=== PATIENT | female | born 1960 | race Caucasian/White ===

== ENCOUNTER 2023-01-27 06:38 | Outpatient (OUT) | payer BC, SELFPAY ==
[2023-01-27 07:12] LABS: Basophils Percent Auto 0.4 % (0.2-2.0); Eosinophils Absolute Auto 0.1 10^3/uL (0.0-0.7); Estimated Average Glucose 148 mg/dL; Glycohemoglobin A1C 6.8 % (4.5-6.2); Hematocrit 44.6 % (36.0-48.0); Hemoglobin 14.7 g/dL (12.0-16.0); Immature Granulocytes Abs Auto 0.03 10^3/uL (0.00-0.03); Immature Granulocytes Pct Auto 0.4 % (0.0-0.5); Lymphocytes Absolute Auto 2.8 10^3/uL (1.2-3.8); Lymphocytes Percent Auto 33.4 % (20.5-60.0); Mean Corpuscular Hemoglobin 30.2 pg (26.7-34.0); Mean Corpuscular Volume 91.8 fL (81.0-99.0); Mean Platelet Volume 9.4 fL (9.5-13.5); Monocytes Absolute Auto 0.6 10^3/uL (0.3-0.8); Monocytes Percent Auto 7.5 % (1.7-12.0); Neutrophils Absolute Auto 4.8 10^3/uL (1.4-6.5); Neutrophils Percent Auto 57.3 % (43.0-75.0); Platelet Count 377 10^3/uL (150-450); Red Blood Count 4.86 10^6/uL (4.20-5.40); Red Cell Distribution Width 13.1 % (11.0-15.0); White Blood Count 8.4 10^3/uL (4.0-11.0)
[2023-01-27 08:18] LABS: Alanine Aminotransferase 18 U/L (14-59); Albumin Globulin Ratio 0.8; Albumin Level 3.5 g/dL (3.4-5.0); Alkaline Phosphatase 115 U/L (46-116); Anion Gap 12.9; Aspartate Amino Transferase 14 U/L (15-37); BUN Creatinine Ratio 14.5; Bilirubin Direct <0.1 mg/dL (0.0-0.2); Bilirubin Total 0.2 mg/dL (0.2-1.0); Calcium 9.6 mg/dL (8.5-10.1); Carbon Dioxide 28.2 mmol/L (21.0-32.0); Chloride 105 mmol/L (98-107); Cholesterol 133 mg/dL (<=200); Estimated GFR (African America >60 (>=60); Estimated GFR (Non-African Ame >60 (>=60); Free T3 2.62 pg/mL (2.18-3.98); Globulin 4.6 g/dL; Glucose 138 mg/dL (74-106); HDL Cholesterol 65 mg/dL (40-60); Potassium 4.1 mmol/L (3.5-5.1); Sodium 142 mmol/L (136-145); Thyroid Stimulating Hormone 0.016 uIU/mL (0.358-3.740); Total Protein 8.1 g/dL (6.4-8.2); Triglycerides 58 mg/dL (<=150); VLDL CHOLESTEROL 11.6 mg/dL
[2023-01-27 08:34] LABS: Free T4 1.67 ng/dL (0.76-1.46)
== END 2023-01-27 06:39 | disposition home or self-care (01) ==
LOC: LAB 06:43
PROVIDERS: PCP Family Medicine; Visit Provider Family Medicine
DX: Z00.00 Encounter for general adult medical examination without abnormal findings (principal); E03.9 Hypothyroidism, unspecified
CPT/HCPCS: 36415; 80048; 80061; 80076; 83036; 84439; 84443; 84481; 85025

== ENCOUNTER 2023-08-06 10:41 | Outpatient (OUT) | payer MEDICAID, SELFPAY ==
[2023-08-06 11:16] LABS: Estimated Average Glucose 148 mg/dL; Glycohemoglobin A1C 6.8 % (4.5-6.2)
== END 2023-08-06 10:42 | disposition home or self-care (01) ==
PROVIDERS: PCP Family Medicine; Visit Provider Family Medicine
DX: E11.65 Type 2 diabetes mellitus with hyperglycemia (principal)
CPT/HCPCS: 36415; 83036

== ENCOUNTER 2024-02-02 13:20 | Outpatient (OUT) | payer MEDICARE, MEDICAID, SELFPAY ==
--- OUTSIDE RECORDS SUMMARY | 2024-02-02 13:39 | XMS_ITS | CCD ---
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 DRIVER [facility] Care Team Providers Care Differential Specialist Name Role Phone PHYSICIAN, DEFAULT Unavailable Unavailable PHYSICIAN, DEFAULT Unavailable Unavailable SELF, REFERRED Unavailable Unavailable MD Dakota Shaw Primary Care Provider [phone] ROHAN Cao Attending Provider [phone] VALERIA, DR DAKOTA Dewitt Admitting Unavailable NADEREMartin, DR DAKOTA Dewitt Attending Unavailable WEST, DR JAMAAL Varma Consulting Unavailable NADERER, DR DAKOTA Dewitt Consulting Unavailable NADEREMartin, DR DAKOTA Dewitt Admitting Unavailable NADEREMartin, DR DAKOTA Dewitt Attending Unavailable NADERER, DR DAKOTA Dewitt Primary Care Unavailable NADERER, DR DAKOTA Dewitt Consulting Unavailable NADERER, DAKOTA Attending Unavailable NADERER, DAKOTA Attending Unavailable Allergies Allergy Classification Reported Allergen(s) Allergy Type Date of Onset Reaction(s) Facility (3 sources) Penicillins Drug allergy (disorder) 9 Hives The [facility] (2 sources) Sulfonamides (Antibiotic) Drug allergy (disorder) 9 The [facility] (1 source) METAL; Translations: [METAL] Propensity to adverse reactions (disorder) 1 The [facility] (2 sources) Sulfonamides (Antibiotic) Allergy to substance 8 Blister, Blister, hives [facility] (1 source) Leucine Drug Allergy [facility] (1 source) Penicillin Drug Allergy [facility] Medications Current Medications Medication Drug Class(es) Dates Sig (Normalized) Sig (Original) clindamycin 300 mg oral capsule (1 source) Lincosamide Antibacterial Start: 11-03-2023 take 300 mg by mouth every eight hours Clindamycin Hcl Active 300 MG PO Q8H 30 November 03, 2023 12:00am glipiZIDE 10 mg oral tablet (1 source) Sulfonylurea Start: 11-03-2023 take 10 mg by mouth once daily Glipizide Active 10 MG PO Daily November 03, 2023 12:00am levothyroxine sodium 0.15 mg oral tablet (1 source) l-Thyroxine Start: 11-03-2023 take 150 ug by mouth once daily Levothyroxine Active 150 MCG PO Daily November 03, 2023 12:00am lisinopril 40 mg oral tablet (1 source) Angiotensin Converting Enzyme Inhibitor Start: 11-03-2023 take 40 mg by mouth once daily Lisinopril Active 40 MG PO Daily November 03, 2023 12:00am 24 hr metFORMIN hydrochloride 500 mg extended release oral tablet (1 source) Biguanide Start: 11-03-2023 Metformin Active MG PO November 03, 2023 12:00am pioglitazone 30 mg oral tablet (1 source) Peroxisome Proliferator Receptor alpha Agonist, Peroxisome Proliferator Receptor gamma Agonist, Thiazolidinedione Start: 11-03-2023 take 30 mg by mouth once daily Pioglitazone Active 30 MG PO Daily November 03, 2023 12:00am Problems Problem Classification Problem Date Documented Da te Episodic/Chronic Diabetes mellitus with complications (4 sources) Type 2 diabetes mellitus with hyperglycemia; Translations: [TYPE 2 DM W/HYPERGLYCEMIA] Onset: 11-14-2021 Chronic Substance-related disorders (4 sources) Nicotine dependence, cigarettes, uncomplicated; Translations: [NICOTINE DEPEND CIGARETTES UNCOMP] Onset: 08-28-2021 Chronic Results Test Name Value Interpretation Reference Range Facility GLYCOHEMOGLOBIN A1Con 2021 ADA RECOMMENDATION SEE BELOW Normal [facility] Comment on above: Result Comment: ADA RECOMMENDED LIMIT 4.0 - 6.0 ADA THERAPEUTIC TARGET < 7.0 ACTION SUGGESTED > 7.0 Performed By: #### A 1C #### [facility] [address] [address] [address] Wanda Ortiz Glucose [Mass/Vol] 154 mg/dL Normal [facility] Comment on above: Performed By: #### A 1C #### [facility] [address] [place], [place] [address] Dr. Wanda Ortiz HbA1c (Bld) [Mass fraction] 7.0 % Critically high 4.5-6.2 [facility] Comment on above: Performed By: #### A 1C #### [facility] [address] [place], [place] [address] Dr. Wanda Ortiz Vaginitis Plus (VG+)on 10-23 Atopobium Vaginae Low - 0 Normal . [facility] Comment on above: Performed By: #### V AGINITIS+ #### [facility] , BVAB2 Low - 0 Normal . [facility] Comment on above: Performed By: #### V AGINITIS+ #### [facility] , Miley Albicans, DELL Negative Normal Negative [facility] Comment on above: Result Comment: This test was developed and its performance characteristics determined by [facility]. It has not been cleared or approved by the Food and Drug Administration. Performed By: #### V AGINITIS+ #### [facility] , Miley Glabrata, DELL Negative Normal Negative [facility] Comment on above: Result Comment: This test was developed and its performance characteristics determined by [facility]. It has not been cleared or approved by the Food and Drug Administration. PERFORMED BY: [address] [place] [address] PATHOLOGIST IT PROGRAM ENGAGEMENT DIRECTOR RUSSELL WHITFIELD M.D. Performed By: #### V AGINITIS+ #### [facility] , Chlamydia Trachomotis, DELL Negative Normal Negative [facility] Comment on above: Performed By: #### V AGINITIS+ #### [facility] , Megasphaera Low - 0 Normal . [facility] Comment on above: Result Comment: Calc ulate total score by adding the 3 individual bacterial vaginosis (BV) marker scores together. Total score is interpreted as follows: Total score 0-1: Indicates the absence of BV. Total score 2: Indeterminate for BV. Additional clinical data should be evaluated to establish a diagnosis. Total score 3-6: Indicates the presence of BV. This test was developed and its performance characteristics determined by [facility]. It has not been cleared or approved by the Food and Drug Administration. Performed By: #### V AGINITIS+ #### [facility] , Neisseria Gonorrhoeae, DELL Negative Normal Negative [facility] Comment on above: Result Comment: Perf ormed at: =G - [facility] [place] [place] [id number] Social Services Manager: Clemencia Patel MD, Phone: [phone] Performed By: #### V AGINITIS+ #### [facility] , Tric Vag DELL Negative Normal Negative [facility] Comment on above: Performed By: #### V AGINITIS+ #### [facility] , CT LUNG CANCER SCREENINGon 0 08-28-2021 CT LUNG CANCER SCREENING EXAMINATION: CT LUNG CANCER SCREENING HISTORY: Tobacco dependence caused by cigarettes COMPARISON: No relevant comparison available. TECHNIQUE: Axial, Coronal, and Sagittal images were created without the administration of IV contrast material. Dose reduction techniques were achieved by using automated exposure control and/or adjustment of mA and/or kV according to patient size and/or use of iterative reconstruction technique. FINDINGS: LUNGS: Mild scattered paraseptal emphysema with an apical predominance. No significant bronchiectasis or peribronchial thickening. There is a mild groundglass mosaic appearance of the lung parenchyma with peripheral ill-defined groundglass opacities most significant in the upper lung zones. This is indeterminate, consider a mild inflammatory pneumonitis. No focal lung mass is observed few scattered pulmonary nodules are identified punctate, the largest measures 4 mm in the left lower lobe axial image 105 PLEURA: No mass, effusion, or pneumothorax. VASCULATURE: No abnormality. SOPHY: No mass or pathologic adenopathy. MEDIASTINUM: No mass or pathologic adenopathy. CARDIAC: No enlargement, pericardial thickening, or significant calcification. AORTA: No aneurysm or dissection. CHEST WALL: No mass or axillary adenopathy BONES: No bone lesion or fracture. LIMITED ABDOMEN: No suspicious findings. Limited images of the upper abdomen. OTHER: Negative. IMPRESSION: LUNG SCREENING: Lung-RADS Category 2- Benign Appearance or Behavior. Nodules with a very low likelihood of becoming a clinically active cancer due to size or lack of growth. 2. Continue annual screening with LDCT in 12 months. Electronically authenticated by: JAMAAL GIANG Date: 2021-08-28 11:41 Normal [facility] Vital Signs Date Time Vital Sign Value Performing Clinician Dmitry hannah 11-03-2023 13:040 Body height 170.18 cm [facility] 11-03-2023 13:-0400 Body mass index (BMI) [Ratio] 29 kg/m2 [facility] 11-03-2023 13:040 Body temperature 98.2 [degF] [facility] 11-03-2023 13:040 Body weight 84.08 kg [facility] 11-03-2023 13:0400 Heart rate 56 /min [facility] 11-03-2023 13:040 Respiratory rate 18 /min [facility] 11-03-2023 13:0400 SaO2% (BldA) [Mass fraction] 95 % [facility] Encounters Encounter Date Encounter Type Care Provider Facility Start: 01-11-2024 End: 01-11-2024 ambulatory DAKOTA SHAW Not Available Start: 11-03-2023 End: 11-03-2023 ambulatory [facility] Work Phone: Start: 11-03-2023 End: 11-03-2023 Patient encounter procedure [facility] Work Phone: Start: 07-07-2023 End: 07-07-2023 ambulatory DAKOTA SHAW Not Available Start: 11-14-2021 End: 11-15-[address] DAKOTA SHAW Facility:[facility] Start: 10-23-2021 End: 10-23-2021 Departed Referred MD Dakota Shaw Work Phone: [facility] [place] Start: 08-28-2021 End: 08-29-[address] DAKOTA SHAW Facility:[facility] Start: 10-06-2017 End: 10-07-2017 Ambulatory DEFAULT PHYSICIAN Facility:[facility] Plan of Treatment Date Care Activity Detail Author Atlino hope DN A [Presence] in Vaginal fluid by DELL with probe detection [facility] Work Phone: Bacterial vaginosis associated bacterium 2 DNA [Presence] in Vaginal fluid by DELL with probe detection [facility] Work Phone: Megasphaera sp type 1 DNA [Presence] in Vaginal fluid by DELL with probe detection [facility] Work Phone: [facility] Work Phone: Payers Date Payer Category Payer Unknown [id number] 1961 Medicare [id number] 1960 Unknown [id number] 2.16.84 [id number] 1960 Unknown [id number] 2.16.84 [id number] 1960 Unknown [id number] 2.16.84 [id number] 1960 Unknown [id number] 2.16.84 [id number] Medicare Other1 (STD) [id number] Self-pay [id number] Unknown Social History Date Type Detail Facility Start: 03-07-2018 Tobacco smoking stat [facility] Smoker (finding) [facility] Start: 1960 Sex Assigned At Female F [facility] Evaluation note Note Date & Type Note Facility Evaluation note No assessment information availa ble [facility] Work Phone: Summary Purpose Family History No Family History Records Found Relationship Condition Age at Onset Recorded Date/T brábara brother Malignant neoplasm Unknown Unknown father Unknown Malignant neoplasm Unknown Not Specified Malignant neoplasm Unknown Diabetes mellitus Unknown Advance Directives No Advanced Directives Records Found Advance Directive Response Recorded Date/ Time Advance Directives No March 07, 2018 3:24pm Chief Complaint and Reason for Visit Chief Complaint Poss infected tooth Additional Source Comments INFORMATION SOURCE (unrecogn ized section and content) DATE CREATED AUTHOR 01/08/2018 [facility] DATE CREATED AUTHOR AUTHOR'S ORGANIZ ATION 11/10/2021 [facility] DATE CREATED AUTHOR AUTHOR'S ORGANIZ ATION 11/20/2021 [facility] DATE CREATED AUTHOR AUTHOR'S ORGANIZ ATION 01/12/2024 [facility] dical Specialists EPIC Care Teams (unrecognized sec tion and content) Team Status: Inactive Member Role Status Dates Dakota Shaw MD Primary Care Provider Active ROHAN Gamez Attending Provider Active Team Status: Active Member Role Status Dates Dakota Shaw MD Primary Care Provider Active Team Status: Inactive Member Role Status Dates Dakota Shaw MD Primary Care Provider Active S tart: November 03, 2023 End: November 03, 2023 Mary Winston APRN Attending Provider Active Start: November 03, 2023 End: November 03, 2023 Goals (unrecognized section and content) Goals may be documented in a n alternate sectionGoals may be documented in an alternate section FOR RECORDS PERTAINING TO PATIENTS WHO ARE OR HAVE BEEN ENROLLED IN A CHEMICAL DEPENDENCY/SUBSTANCEABUSE PROGRAM, SOME INFORMATION MAY BE OMITTED. This clinical summary was aggregated from multiple sources. Caution should be exercised in using it in the provision of clinical care. This summary normalizes information from multiple sources, and as a consequence, information in this document may materially change the coding, format and clinical context of patient data. In addition, data may be omitted in some cases. CLINICAL DECISIONS SHOULD BE BASED ON THE PRIMARY CLINICAL RECORDS. [employer] provides no warranty or guarantee of the accuracy or completeness of information in this document.
[2024-02-02 14:12] LABS: Basophils Percent Auto 0.3 % (0.2-2.0); Eosinophils Absolute Auto 0.1 10^3/uL (0.0-0.7); Eosinophils Percent Auto 0.4 % (0.9-7.0); Hematocrit 44.7 % (36.0-48.0); Hemoglobin 14.7 g/dL (12.0-16.0); Immature Granulocytes Abs Auto 0.09 10^3/uL (0.00-0.03); Immature Granulocytes Pct Auto 0.6 % (0.0-0.5); Lymphocytes Absolute Auto 3.7 10^3/uL (1.2-3.8); Lymphocytes Percent Auto 25.5 % (20.5-60.0); Mean Corpuscular HGB Conc 32.9 g/dL (29.9-35.2); Mean Corpuscular Hemoglobin 31.3 pg (26.7-34.0); Mean Corpuscular Volume 95.1 fL (81.0-99.0); Mean Platelet Volume 9.8 fL (9.5-13.5); Monocytes Percent Auto 7.1 % (1.7-12.0); Neutrophils Absolute Auto 9.6 10^3/uL (1.4-6.5); Neutrophils Percent Auto 66.1 % (43.0-75.0); Platelet Count 436 10^3/uL (150-450); Red Cell Distribution Width 13.1 % (11.0-15.0); White Blood Count 14.6 10^3/uL (4.0-11.0)
[2024-02-02 14:37] LABS: Estimated Average Glucose 134 mg/dL; Glycohemoglobin A1C 6.3 % (4.5-6.2)
[2024-02-02 15:40] LABS: Microalbumin Urine Random <1.3 mg/dL (<=30.0)
[2024-02-02 16:03] LABS: Free T4 1.19 ng/dL (0.76-1.46)
[2024-02-02 16:26] LABS: Alanine Aminotransferase 25 U/L (14-59); Albumin Globulin Ratio 0.7; Albumin Level 3.6 g/dL (3.4-5.0); Alkaline Phosphatase 105 U/L (46-116); Aspartate Amino Transferase 15 U/L (15-37); BUN Creatinine Ratio 21.6; Bilirubin Direct 0.1 mg/dL (0.0-0.2); Bilirubin Total 0.4 mg/dL (0.2-1.0); Calcium 9.4 mg/dL (8.5-10.1); Carbon Dioxide 26.1 mmol/L (21.0-32.0); Chloride 102 mmol/L (98-107); Cholesterol 219 mg/dL (<=200); Estimated GFR (African America 48 (>=60); Estimated GFR (Non-African Ame 40 (>=60); Globulin 4.9 g/dL; Glucose 108 mg/dL (74-106); HDL Cholesterol 72 mg/dL (40-60); Potassium 4.1 mmol/L (3.5-5.1); Sodium 139 mmol/L (136-145); Thyroid Stimulating Hormone 0.025 uIU/mL (0.358-3.740); Total Protein 8.5 g/dL (6.4-8.2); Triglycerides 97 mg/dL (<=150); VLDL CHOLESTEROL 19.4 mg/dL
== END 2024-02-02 13:21 | disposition home or self-care (01) ==
LOC: LAB 13:23
PROVIDERS: PCP Family Medicine; Visit Provider Family Medicine
DX: E78.5 Hyperlipidemia, unspecified (principal); E11.65 Type 2 diabetes mellitus with hyperglycemia; I10 Essential (primary) hypertension; Z79.899 Other long term (current) drug therapy; E03.9 Hypothyroidism, unspecified
CPT/HCPCS: 36415; 80048; 80061; 80076; 82043; 83036; 84439; 84443; 84481; 85025

== ENCOUNTER 2024-06-29 10:19 | Outpatient (OUT) | payer MEDICARE, MEDICAID, SELFPAY ==
--- OUTSIDE RECORDS SUMMARY | 2024-06-29 10:39 | XMS_ITS | CCD ---
Author Organization [facility] Inform ion Partnership PACK WORKER SUPERVISOR [facility] Care Team Providers Care Art Editor Name Role Phone PHYSICIAN, DEFAULT Unavailable Unavailable PHYSICIAN, DEFAULT Unavailable Unavailable SELF, REFERRED Unavailable Unavailable MD Dakota Shaw Primary Care Provider [phone] ROHAN Cao Attending Provider VALERIA, DR DAKOTA Dewitt Admitting Unavailable NADEREMartin, [...] Penicillins Drug allergy (disorder) 9 Hives [facility] (2 sources) Sulfonamides (Antibiotic) Drug allergy (disorder) 9 [facility] (1 source) METAL; Translations: [METAL] Propensity to adverse reactions (disorder) 1 [facility] (2 sources) Sulfonamides (Antibiotic) Allergy to substance 8 Blister, Blister, hives [facility] (1 source) Leucine Drug Allergy [facility] (1 source) Penicillin Drug Allergy [facility] Medications Current Medications Medication Drug Class(es) [...] 2021 ADA RECOMMENDATION SEE BELOW Normal [facility] Comment on above: Result Comment: ADA RECOMMENDED LIMIT 4.0 - 6.0 ADA THERAPEUTIC TARGET < 7.0 ACTION SUGGESTED > 7.0 Performed By: #### A 1C #### [facility] [address] [address] [address] Wanda Ortiz Glucose [Mass/Vol] 154 mg/dL Normal [facility] Comment on above: Performed By: #### A 1C #### [facility] [address] [place], [place] [address] Dr. Wanda Ortiz HbA1c (Bld) [Mass fraction] 7.0 % Critically high 4.5-6.2 [facility] Comment on above: Performed By: #### A 1C #### [facility] [address] [place], [place] [address] Dr. Wanda Ortiz Vaginitis Plus (VG+)on 10-23 Atopobium Vaginae Low - 0 Normal . [facility] Comment on above: Performed By: #### V AGINITIS+ #### [facility] , BVAB2 Low - 0 Normal . [facility] Comment on above: Performed By: #### V AGINITIS+ #### [facility] , Miley Albicans, DELL Negative Normal Negative [facility] Comment on above: Result Comment: This test was developed and its performance characteristics determined by [facility]. It has not been cleared or approved by the Food and Drug Administration. Performed By: #### V AGINITIS+ #### [facility] , Miley Glabrata, DELL Negative Normal Negative [facility] Comment on above: Result Comment: This test was developed and its performance characteristics determined by [facility]. It has not been cleared or approved by the Food and Drug Administration. PERFORMED BY: [address] [place] [address] PATHOLOGIST PICKER FEEDER RUSSELL WHITFIELD M.D. Performed By: #### V AGINITIS+ #### [facility] , Chlamydia Trachomotis, DELL Negative Normal Negative [facility] Comment on above: Performed By: #### V AGINITIS+ #### [facility] , Megasphaera Low - 0 Normal . [facility] Comment on above: Result Comment: [...] developed and its performance characteristics determined by [facility]. It has not been cleared or approved by the Food and Drug Administration. Performed By: #### V AGINITIS+ #### [facility] , Neisseria Gonorrhoeae, DELL Negative Normal Negative [facility] Comment on above: Result Comment: Perf ormed at: =G - [facility] [place] [place] [id number] Dye Jig Operator: Clemencia Patel MD, Phone: [phone] Performed By: #### V AGINITIS+ #### [facility] , Tric Vag DELL Negative Normal Negative [facility] Comment on above: Performed By: [...] by: JAMAAL GIANG Date: 2021-08-28 11:41 Normal [facility] Vital Signs Date Time Vital Sign Value Performing Clinician Dmitry hannah 11-03-2023 13:040 Body height 170.18 cm [facility] [place] [facility] 11-03-2023 13:-0400 Body mass index (BMI) [Ratio] 29 kg/m2 [facility] 11-03-2023 13:040 Body temperature 98.2 [degF] [facility] 11-03-2023 13:040 Body weight 84.08 kg [facility] [place] [facility] 11-03-2023 13:0400 Heart rate 56 /min [facility] [place] [facility] 11-03-2023 13:040 Respiratory rate 18 /min [facility] 11-03-2023 13:0400 SaO2% (BldA) [Mass fraction] 95 % [facility] Encounters Encounter Date Encounter Type Care Provider Facility Start: 01-11-2024 End: 01-11-2024 ambulatory DAKOTA SHAW Not Available Start: 11-03-2023 End: 11-03-2023 ambulatory [facility] Work Phone: Start: 11-03-2023 End: 11-03-2023 Patient encounter procedure [facility] Work Phone: Start: 07-07-2023 End: 07-07-2023 ambulatory DAKOTA SHAW Not Available Start: 11-14-2021 End: 11-15-[address] DAKOTA SHAW Facility:[facility] Start: 10-23-2021 End: 10-23-2021 Departed Referred MD Dakota Shaw Work Phone: [facility] [place] Start: 08-28-2021 End: 08-29-[address] DAKOTA SHAW Facility:[facility] Start: 10-06-2017 End: 10-07-2017 Ambulatory DEFAULT PHYSICIAN Facility:[facility] Plan of Treatment Date Care Activity Detail Author Atlino hope DN A [Presence] in Vaginal fluid by DELL with probe detection [facility] Work Phone: Bacterial vaginosis associated bacterium 2 DNA [Presence] in Vaginal fluid by DELL with probe detection [facility] Work Phone: Megasphaera sp type 1 DNA [Presence] in Vaginal fluid by DELL with probe detection [facility] Work Phone: [facility] Work Phone: Payers Date Payer Category Payer Unknown [id number] 1961 Medicare [id number] 1960 Unknown [id number] 2.16.84 [id number] 1960 Unknown [id number] 2.16.84 [id number] 1960 Unknown [id number] 2.16.84 [id number] 1960 Unknown [id number] [id number] [id number] Medicare Other1 (STD) [id number] Self-pay [id number] Unknown Social History Date Type Detail Facility Start: 03-07-2018 Tobacco smoking stat [facility] Smoker (finding) [facility] Start: 1960 Sex Assigned At Female F [facility] Evaluation note Note Date & Type Note Facility Evaluation note No assessment information availa ble [facility] Work Phone: Summary Purpose Family History No Family History Records Found Relationship Condition Age at Onset Recorded Date/T bárbara brother Malignant neoplasm Unknown Unknown father Unknown Malignant neoplasm Unknown Not Specified Malignant neoplasm Unknown Diabetes mellitus Unknown Advance Directives No Advanced Directives Records Found Advance Directive Response Recorded Date/ Time Advance Directives No March 07, 2018 3:24pm Chief Complaint and Reason for Visit Chief Complaint Poss infected tooth Additional Source Comments INFORMATION SOURCE (unrecogn ized section and content) DATE CREATED AUTHOR 01/08/2018 [facility] DATE CREATED AUTHOR AUTHOR'S ORGANIZ ATION 11/10/2021 [facility] [place] [facility] DATE CREATED AUTHOR AUTHOR'S ORGANIZ ATION 11/20/2021 [facility] DATE CREATED AUTHOR AUTHOR'S ORGANIZ ATION 01/12/2024 [facility] dical Specialists EPIC Care Teams (unrecognized [...] BE BASED ON THE PRIMARY CLINICAL RECORDS. [employer] provides no warranty or guarantee of the accuracy or completeness of information in this document.
[2024-06-29 15:55] LABS: Estimated Average Glucose 148 mg/dL; Glycohemoglobin A1C 6.8 % (4.5-6.2)
== END 2024-06-29 10:20 | disposition home or self-care (01) ==
LOC: LAB 10:20
PROVIDERS: PCP Family Medicine; Visit Provider Family Medicine
DX: E11.65 Type 2 diabetes mellitus with hyperglycemia (principal)
CPT/HCPCS: 36415; 83036

== ENCOUNTER 2025-02-09 09:12 | Outpatient (OUT) | payer MEDICARE, MEDICAID, SELFPAY ==
--- OUTSIDE RECORDS SUMMARY | 2024-10-14 09:15 | XMS_ITS ---
Author Organization [facility] Servic es Address [address] [place] [address] Care Team Providers Care Fire Sprinkler Inspector Name Role Phone Virgen Jazmine Primary Care Provider Encounters Encounter Location Date Provider Diagnosis [facility] [address] [place] [address] 10/14/2024 Jazmine New Plan Of Treatment Next Appt Details Provider Name:Jazmine bustillos, 03/09/2025 12:30:00 PM, [address], [place], [address], Provider Name:Jazmine bustillos, 04/03/2025 01:15:00 PM, [address] [place], [address], Progress Notes * MAURILIO CARTER KDOB:[birth year] (64 yo F)Acc No.[id number]:10/14/2024 Behavioral Health Patient: Iza SCHMITT MAURILIO Coburn Appointment Provider: HUNTER CHAVEZBC :1960 A ge:63 Y S ex:Female Date:10/14/2024 Address:[address], [address], [place], [place] Subjective: * Chief Complaints: * * Medical History: Objective: * Vitals: Assessment: Plan: * Treatment: * Images: * Electronic signature of DENNY Christianson i on 02/09/2025 at 09:19 AM EDT Sign off status: Pending * Appointment Provider: HUNTER CHAVEZ Date: 0 10/14/2024 Generated for Georgina ariza/Kathy/Shayy on: 0 02/09/2025 09:19 AM EDT
--- OUTSIDE RECORDS SUMMARY | 2025-02-06 09:30 | XMS_ITS ---
Author Organization [facility] Address [address] [place] [address] Care Team Providers [employer] Executive Security Name Role Phone Jazmine Moran Primary Care Provider Allergies Allergen (clinical drug ingredient) Drug/Non Drug Allergy documented on EMR Reaction Allergy Type Onset Date Status Metals Metals (uncoded) Unknown Allergy Act gianna Penicillin hives Drug Allergy Active Substance with sulfonamide structure and antibacterial mechanism of action (substance) Sulfa Antibiotics Unknown Drug Allergy Active REASON FOR VISIT 2 month, Pt states things are going, Pt states she has no concerns, Pt states she is sleeping and eating well, Pt states mood has been lia shitty Medications Medication SIG (Take, Route, Frequency, Duration) Notes Start Date End Date Status Citalopram Hydrobromide 40 MG 1 tablet Orally Once a day; Duration: 90 days Active OLANZapine 5 MG 1 tablet Orally Once a day; Duration: 30 day(s) 12/17/2023 Not-Taking busPIRone HCl 15 MG 2 tablets Orally Onc e a day; Duration: 90 days 03/18/2024 02/01/2026 Active QUEtiapine Fumarate 150 MG 1 or 2 tablets Orally Once a day; Duration: 90 days 06/23/2024 Active Levothyroxine Sodium 150 MCG 1 tablet in the morning on an empty stomach Orally Once a day Active Lisinopril 40 MG 1 tablet Orally Once a day Active metFORMIN HCl 500 MG 2 tablet with a ayden l Orally Twice a day Active Aspirin Active glipiZIDE 10 MG 1 tablet 30 minutes before breakfast Orally Once a day Active Pioglitazone HCl 30 MG 1 tablet Orally O nce a day Active Social History Tobacco Use: Social History Observation Description Date Details (start date - stop date) Current Smoker NA - NA Depression Screening (PHQ-9): Question Answer Notes Little interest or pleasure in doing things Near ly every day Feeling down, depressed, or hopeless Nearly ever y day Trouble falling or staying a sleep, or sleeping too much Nearly every day Feeling tired or having little energy Nearly nacho ry day Poor appetite or overeating Not at all Feeling bad about yourself-o r that you are a failure or have let yourself or your family down Nearly every day Trouble concentrating on thi ngs, such as reading the newspaper or watching television Several days Moving or speaking so slowly that other people could have noticed. Or the opposite being so fidgety or restless that you have been moving around a lot more than usual Nearly every day Thoughts that you would be b siva off , or of hurting yourself in some way Not at all Total Score 19 Intepretation Moderately severe depression AUDIT-C (Standard) Question Answer Notes Did you have a drink containing alcohol in the p ast year? No Points 0 Interpretation Negative Tobacco Control (Standard) Question Answer Notes Tobacco use: Current smoker How often do you smoke cigarettes? Every day How many cigarettes a day do you smoke? 21-30 How soon after you wake up do you smoke your fir st cigarette? Within 5 minutes Are you interested in quitting? Not ready to kaitlyn t Section Notes: Smokes 3PPD Vital Signs Height 67 in 02/06/2025 Weight 191.6 lbs 02/06/2025 BMI 30.01 kg/m2 02/06/2025 Temperature 97.5 degrees Fahrenheit 02/07/20 25 Blood pressure systolic 121 mm Hg 02/07/20 25 Blood pressure diastolic 72 mm Hg 025 Oximetry 94 % 02/06/2025 Heart Rate 60 /min 02/06/2025 Encounters Encounter Location Date Provider [address] [place] [address] 02/06/2025 Jazmine Moran NIDA (generalized anxiety disorder) F41.1 ; Insomnia due to other mental disorder F51.05 and Episodic mood disorder F39 Assessments Encounter Date Diagnosis (ICD Code) Assessment Notes Treatment Notes Treatment Clinical Notes Section Notes 02/06/2025 NIDA (generalized anxiety disorder) (ICD-10 - F41.1) Recommended treatment is: _ FDA approved medication for this age group include Selective Serotonin Reuptake Inhibitors (SSRI) and Selective Norepinephrine Reuptake Inhibitors (SNRI). . Selective serotonin reuptake inhibitors? can cause nausea, headache, upset stomach, diarrhea, constipation, anxiety, irritability, and sexual dysfunction. . Please monitor for worsening of symptoms, especially suicidal ideations or morbid thoughts, and call office and or go to the emergency department immediately. Pt does not endorse exhibiting symptoms aligning with janice. . The patient verbalizes understanding with all questions answered thoroughly and is in agreement with treatment plan. . Continue current treatment plan Patient/Guardian will call sooner if symptoms worsen. Patient understands to go to ER if needed if symptoms become severe. Crisis Intervention plan was discussed and agreed upon. Patient/Guardian will call 911 in case of emergency. Emergency contact information was provided to the patient/guardian. . Informed consent obtained: YES, we discussed the diagnosis/diagnoses , the treatment options, treatment(s) recommended vs. no treatment. We discussed risks and benefits of treatment options, treatment recommendations vs. no treatment. . . Pt is to continue current treatment plan Has good tolerability and compliance with medication Call for problems All questions and concerns discussed . 02/06/2025 Insomnia due to other mental disorder (ICD-10 - F51.05) 02/06/2025 Episodic mood disorder (ICD-10 - F39) Plan Of Treatment Medication Medication Name Sig Start Date Stop Date Notes Citalopram Hydrobromide 40 MG 1 tablet O rally Once a day; Duration: 90 days busPIRone HCl 15 MG 2 tablets Orally Onc e a day; Duration: 90 days 03/18/2024 02/01/2026 QUEtiapine Fumarate 150 MG 1 or 2 tablet s Orally Once a day; Duration: 90 days 06/23/2024 Treatment Notes Assessment Notes NIDA (generalized anxiety disorder) Recommended treatment is: _ FDA approved medication for this age group include Selective Serotonin Reuptake Inhibitors (SSRI) and Selective Norepinephrine Reuptake Inhibitors (SNRI). . Selective serotonin reuptake inhibitors? can cause nausea, headache, upset stomach, diarrhea, constipation, anxiety, irritability, and sexual dysfunction. . Please monitor for worsening of symptoms, especially suicidal ideations or morbid thoughts, and call office and or go to the emergency department immediately. Pt does not endorse exhibiting symptoms aligning with janice. . The patient verbalizes understanding with all questions answered thoroughly and is in agreement with treatment plan. . Continue current treatment plan Patient/Guardian will call sooner if symptoms worsen. Patient understands to go to ER if needed if symptoms become severe. Crisis Intervention plan was discussed and agreed upon. Patient/Guardian will call 911 in case of emergency. Emergency contact information was provided to the patient/guardian. . Informed consent obtained: YES, we discussed the diagnosis/diagnoses, the treatment options, treatment(s) recommended vs. no treatment. We discussed risks and benefits of treatment options, treatment recommendations vs. no treatment. . . Pt is to continue current treatment plan Has good tolerability and compliance with medication Call for problems All questions and concerns discussed . Next Appt Details Follow Up: 2 Months, Reason: Provider Name:Jazmine bustillos, 03/09/2025 12:30:00 PM, [address] [place], [address], Provider Name:Jazmine bustillos, 04/03/2025 01:15:00 PM, [address] [place], [address], Progress Notes * MAURILIO CARTER KDOB:[birth year] (64 yo F)Acc No.[id number]:02/06/2025 Behavioral Health Patient: MAURILIO ESTES Appointment Provider: Teri MORAN PMHNP-BC :1960 A ge:64 Y S ex:Female Date:02/06/2025 Address:[address] [place] [address], [address], [id number] Subjective: * Chief Complaints: * 2 monthPt states things are goingPt states she has no concernsPt states she is sleeping and eating wellPt states mood has been lia shitty * HPI: C onstitutional: Pt is being seen today for follow up via in-office visit. Pt is tolerating meds well and taking medications daily. . Pt states that her daughter is living with. Says that they have been argueing. Is stilll grieving her that in the weekend Does not want to change meds or doses . Pt denies mood fluctuation. Energy and motivation are stable. Depressive symptoms are not persistent. Denies episodes of having sadness, anhedonia, isolating behaviors, or crying spells. Anxiety controlled. Concentration intact without distractibility. . Sleeping through the night and feels rested upon waking up. Denies Nightmares. Appetite is good. . Denies Euphoria. Pervasive irritability is controlled today. Meaningful relationships intact. Denies increased goal-oriented behavior or increase in purposeless activity. Attending work/school as scheduled. . Denies suicidal or homicidal ideation or plan. No morbid thoughts. Interpersonal issues discussed. Support provided. Insight oriented/ Behavior modifying/ Supportive therapy . Plan: Would like to continue current tx plan . D epression Screening: PHQ-2 (2015 Edition) L ittle interest or pleasure in doing things??Nearly every day F eeling down, depressed, or hopeless? N early every day T otal Score 6 * ROS: C ONSTITUTIONAL: No fever, chills, sweats, weakness SKIN: No jaundice, rash, lesions, petechiae GASTROINTESTINAL: No nausea, vomiting, diarrhea, or GI bleeding MUSCULOSKELETAL: No muscle pain or weakness NEUROLOGIC: No headache, dizziness, numbness, or weakness . * Medical History: * Surgical History: H YSTERECTOMY ANKLE REPAIR Cholecystectomy Tooth Extraction * Hospitalization/Major Diagno stic Procedure: S ee surgical hx. [facility] (x2) [address] [facility] 1998 * Family History: F ather: , diagnosed with Cancer. M other: , diagnosed with Cancer, Diabetes. 3 brother(s) . 1 son(s) , 3 daughter(s) . . * Social History: G eneral: D epression Screening (PHQ-9) L ittle interest or pleasure in doing things?Nearly every day F eeling down, depressed, or hopeless N early every day T rouble falling or staying asleep, or sleeping too much N early every day F eeling tired or having little energy N early every day P oor appetite or overeating N ot at all F eeling bad about yourself-or that you are a failure or have let yourself or your family down N early every day T rouble concentrating on things, such as reading the newspaper or watching television ever days M oving or speaking so slowly that other people could have noticed. Or the opposite being so fidgety or restless that you have been moving around a lot more than usual N early every day T houghts that you would be better off , or of hurting yourself in some way N ot at all T otal Score 1 9 I ntepretation M oderately severe depression Transition of Care E R/UC/hospital since last office visit? N o Behaviors affecting health P oor/Risky Behaviors: O ral Health-, Second Hand Smoke- Substance abuse/mental health issues of patient/family P atient - D enies F amily Member - I llegal Drug Use, Alcohol Dad and Brothers - Alcoholism Social/Support Concerns P atient: N o Ability to understand healthcare/treatment P atient: F air Communication Barrier L anguage Barrier?: N o D rug/Alcohol: A CRISTHIAN-C (Standard) D id you have a drink containing alcohol in the past year? N o P oints 0 I nterpretation N egative T obacco Use: T obacco Control (Standard) T obacco use: C urrent smoker H ow often do you smoke cigarettes? E very day H ow many cigarettes a day do you smoke? 2 1-30 H ow soon after you wake up do you smoke your first cigarette? W ithin 5 minutes A re you interested in quitting? N ot ready to quit S oralia 3PPD. * Medications: T akingLevothyroxine Sodium 150 MCG Tablet 1 tablet in the morning on an empty stomach Orally Once a day Lisinopril 40 MG Tablet 1 tablet Orally Once a day glipiZIDE 10 MG Tablet 1 tablet 30 minutes before breakfast Orally Once a day Pioglitazone HCl 30 MG Tablet 1 tablet Orally Once a day metFORMIN HCl 500 MG Tablet 2 tablet with a meal Orally Twice a day Aspirin busPIRone HCl 15 MG Tablet 2 tablets Orally Once a day , stop date 02/07/2025QUEtiapine Fumarate 150 MG Tablet 1 or 2 tablets Orally Once a day Citalopram Hydrobromide 40 MG Tablet 1 tablet Orally Once a day Taking Levothyroxine Sodium 150 MCG Tablet 1 tablet in the morning on an empty stomach Orally Once a day Taking Lisinopril 40 MG Tablet 1 tablet Orally Once a day Taking glipiZIDE 10 MG Tablet 1 tablet 30 minutes before breakfast Orally Once a day Taking Pioglitazone HCl 30 MG Tablet 1 tablet Orally Once a day Taking metFORMIN HCl 500 MG Tablet 2 tablet with a meal Orally Twice a day Taking Aspirin Taking busPIRone HCl 15 MG Tablet 2 tablets Orally Once a day , stop date 02/07/2025Taking QUEtiapine Fumarate 150 MG Tablet 1 or 2 tablets Orally Once a day Taking Citalopram Hydrobromide 40 MG Tablet 1 tablet Orally Once a day Not-Taking/PRNOLANZapine 5 MG Tablet 1 tablet Orally Once a day Medication List reviewed and reconciled with the patientNot-Taking/PRN OLANZapine 5 MG Tablet 1 tablet Orally Once a day Medication List reviewed and reconciled with the patient * Allergies: P enicillin: hives - AllergySulfa AntibioticsMetalsno[Allergies Verified] Objective: * Vitals: H t: 67 in, Wt: 191.6 lbs, BMI:30.01Index, Temp: 97.5 F, BP: 121/72 mm Hg, SaO2: 94 %, HR: 60 /min. * Examination: G eneral Examination: . AIMS EXAM: . AIMS Muscles of Facial Expression: None AIMS Lips and Perioral Area: None AIMS Jaw Area Involuntary Movements: None AIMS Tongue Involuntary Movements: None AIMS Upper Arms, Wrists, Hands, Fingers: None AIMS Lower Legs, Knees, Ankles, Toes: None AIMS Overall Abnormal Movement Severity: None AIMS Incapacitation Abnormal Movement: None AIMS Self Awareness of Abnormal Movement: Aware, None noted AIMS Current Teeth, Denture Problems: No AIMS Movements Disappear in Sleep: No . . MENTAL STATUS EXAM: . Appearance: Appropriately dressed and groomed, good eye contact, cooperative, pleasant Behavior/Motor Activity: Normal Gait/Station: Within normal limits Speech: Normal Mood: Good Affect: Full Thought processes/Associations: Logical and goal directed Thought Content: Non-psychotic Cognition/Attention/Memory/Concentration: Alert and oriented x 4; grossly intact attention; memory-recent/remote judged adequate by interviewer Insight: Good Judgement: Good language: Within normal limits Fund of Knowledge: Adequate . Assessment: * Assessment: 1. G AD (generalized anxiety disorder) - F41.1 (Primary) 2 . I nsomnia due to other mental disorder - F51.05 3 . E pisodic mood disorder - F39 ? Plan: * Treatment: * Procedure Codes: 3 078F DIAST BP < 80 MM [id number] SYST BP LT 130 MM [id number] MEDS BY RX/DR IN RCRD * Preventive Medicine: COUNSELING: Zurdo conteh Primary Pharmacy Discussion Patient agrees to primary pharmacy being set to [facility] o Patient Declines: Explain Why Zurdo conteh explained that location of pharmacy is a barrier No drive thru, closes early, and no weekend hours, wants medications sent to local pharmacy but was given a pamphlet and discussed benefits of using [facility] * Follow Up: 2 Months * Images: * Sign off status: Completed true * Appointment Provider: LYDIA CHAVEZ Date: 02/06/2025 Generated for Georgina ariza/Kathy/Shayy on: 02/09/2025 09:19 AM EDT History and Physical Notes * HPI (History of Present Illness) Category Sub-Category Detail Notes Category Not es Depression Screening PHQ-2 (2015 Edition) Little interest or pleasure in doing things?: Nearly every day Feeling down, depressed, or hopeless?: N early every day Total Score: 6 Constitutional Pt is being seen today for follow up via in-office visit. Pt is tolerating meds well and taking medications daily. . Pt states that her daughter is living with. Says that they have been argueing. Is stilll grieving her that in the weekend Does not want to change meds or doses . Pt denies mood fluctuation. Energy and motivation are stable. Depressive symptoms are not persistent. Denies episodes of having sadness, anhedonia, isolating behaviors, or crying spells. Anxiety controlled. Concentration intact without distractibility. . Sleeping through the night and feels rested upon waking up. Denies Nightmares. Appetite is good. . Denies Euphoria. Pervasive irritability is controlled today. Meaningful relationships intact. Denies increased goal-oriented behavior or increase in purposeless activity. Attending work/school as scheduled. . Denies suicidal or homicidal ideation or plan. No morbid thoughts. Interpersonal issues discussed. Support provided. Insight oriented/ Behavior modifying/ Supportive therapy . Plan: Would like to continue current tx plan Examination Category Sub-Category Detail Notes Category Not es General Examination . AIMS EXAM: . AIMS Muscles of Facial Expression: None AIMS Lips and Perioral Area: None AIMS Jaw Area Involuntary Movements: None AIMS Tongue Involuntary Movements: None AIMS Upper Arms, Wrists, Hands, Fingers: None AIMS Lower Legs, Knees, Ankles, Toes: None AIMS Overall Abnormal Movement Severity: None AIMS Incapacitation Abnormal Movement: None AIMS Self Awareness of Abnormal Movement: Aware, None noted AIMS Current Teeth, Denture Problems: No AIMS Movements Disappear in Sleep: No . . MENTAL STATUS EXAM: . Appearance: Appropriately dressed and groomed, good eye contact, cooperative, pleasant Behavior/Motor Activity: Normal Gait/Station: Within normal limits Speech: Normal Mood: Good Affect: Full Thought processes/Associations: Logical and goal directed Thought Content: Non-psychotic Cognition/Attention/Memory/Con centration: Alert and oriented x 4; grossly intact attention; memory-recent/remote judged adequate by interviewer Insight: Good Judgement: Good language: Within normal limits Fund of Knowledge: Adequate .
--- OUTSIDE RECORDS SUMMARY | 2025-02-09 09:19 | XMS_ITS | Clinical Summary ---
Author Organization [facility] Address [address] [place] [address] Care Team Providers Care Orthotics Technician Name Role Phone Dakota Benton MD Unavailable Dakota Benton MD Unavailable Dakota Benton MD Primary Care Provider [phone] Dakota Benton MD Unavailable Allergies Active Allergy Reactions Criticality Noted Date Comments Penicillins Hives 05/27/2017 Sulfa Antibiotics Hives 10/01/2017 Medications albuterol HFA 90 mcg/act inhaler Inhale 2 puffs every 4 (four) hours if needed 3 Active aspirin 81 MG EC tablet Take 81 mg by mouth in the morning. Active citalopram (CeleXA) 40 MG tablet 4 Active QUEtiapine (SEROquel) 50 MG tablet 4 Active atorvastatin (Lipitor) 20 MG tabletIndications:D yslipidemia Take 1 tablet (20 mg) by mouth at bedtime 90 tablet 3 4 06/30/20 25 Active glipiZIDE (Glucotrol) 10 MG tabletIndications:T ype 2 diabetes mellitus with hyperglycemia, without long-term current use of insulin (HCC) Take 1 tablet (10 mg) by mouth Daily 90 tablet 3 4 06/30/20 25 Active levothyroxine (Synthroid, Levoxyl) 150 MCG tabletIndications:A cquired hypothyroidism Take 1 tablet (150 mcg) by mouth Daily 90 tablet 3 4 06/30/20 25 Active lisinopril 40 MG tabletIndications:E ssential hypertension, benign Take 1 tablet (40 mg) by mouth in the morning. 90 tablet 3 4 06/30/20 25 Active metFORMIN XR (Glucophage-XR) 500 MG 24 hr tabletIndications:T ype 2 diabetes mellitus with hyperglycemia, without long-term current use of insulin (HCC) Take 1 tablet (500 mg) by mouth in the morning and 1 tablet (500 mg) before bedtime. Do not crush, chew, or split.. 360 tablet 3 4 Active pioglitazone (Actos) 30 MG tabletIndications:T ype 2 diabetes mellitus with hyperglycemia, without long-term current use of insulin (HCC) Take 1 tablet (30 mg) by mouth Daily 90 tablet 3 4 06/30/20 25 Active Active Problems Problem Noted Date Diagnosed Date Medicare annual wellness visit, subsequent 01/03 Assessment & Plan (01/03/2025 2:35 PM EDT): Due for labs. Declined colonoscopy, mammogram, and LDCT chest. Discussed proper diet and regular aerobic exercise. Need aerobic exercise 5-6 days a week for 30 minutes at a time. Smaller portions and limit total calories. Tetanus every 10 years. Advised not to smoke. Chronic left shoulder pain 06/28/2024 Assessment & Plan (06/28/2024 2:14 PM EST): Pain for months but declines x-ray or PT. Encounter for long-term current use of medicatio n 01/11/2024 Acquired hypothyroidism 07/07/2023 NIDA (generalized anxiety disorder) 07/07/2023 Essential hypertension, benign 07/07/2023 Assessment & Plan (06/28/2024 2:14 PM EST): BP controlled and monitor PRN. Assessment & Plan (01/11/2024 12:30 PM EDT): BP controlled and monitor PRN. Assessment & Plan (07/07/2023 10:16 AM EST): BP elevated and increase lisinopril. Bipolar 1 disorder, depressed, moderate 07/07/20 23 Assessment & Plan (06/28/2024 2:14 PM EST): Following with psychiatry and improved. Assessment & Plan (01/11/2024 12:29 PM EDT): Following with psychiatry and improved. Assessment & Plan (07/07/2023 10:15 AM EST): Worsening symptoms but doesn't want medication. Monitor. COPD (chronic obstructive pulmonary disease) Assessment & Plan (06/28/2024 2:14 PM EST): Continued SOB but smoking 2-3 PPD. Discussed need to quit. Use albuterol PRN. Assessment & Plan (01/11/2024 12:30 PM EDT): Continued SOB but smoking 2-3 PPD. Discussed need to quit. Use albuterol PRN. Assessment & Plan (07/07/2023 10:16 AM EST): Continued SOB but smoking 2-3 PPD. Discussed need to quit. Use albuterol PRN. DDD (degenerative disc disease), lumbar 07/07/20 23 Assessment & Plan (06/28/2024 2:14 PM EST): Pain stable and use OTC PRN. Assessment & Plan (01/11/2024 12:30 PM EDT): Pain stable and use OTC PRN. Assessment & Plan (07/07/2023 10:16 AM EST): Pain stable and use OTC PRN. Dyslipidemia 07/07/2023 Generalized edema 07/07/2023 Assessment & Plan (06/28/2024 2:14 PM EST): Edema stable without medication and monitor. Assessment & Plan (01/11/2024 12:30 PM EDT): Edema stable without medication and monitor. Assessment & Plan (07/07/2023 10:16 AM EST): Edema stable without medication and monitor. Primary localized osteoarthrosis 07/07/2023 Type 2 diabetes mellitus wit h hyperglycemia, without long-term current use of insulin 07/07/2023 Assessment & Plan (06/28/2024 2:14 PM EST): Reports BS stable and due for A1C. Stick to ADA diet and limit carbs. Assessment & Plan (01/11/2024 12:30 PM EDT): Reports BS stable and due for A1C. Stick to ADA diet and limit carbs. Assessment & Plan (07/07/2023 10:17 AM EST): Not checking BS and due for A1C. Stick to ADA diet and limit carbs. Tobacco user 07/07/2023 Assessment & Plan (07/07/2023 10:17 AM EST): Smoking 2-3 PPD and need to quit. Declined any sort of intervention. Encounters Date Type Department Care Team Description 01/03/2025 2:00 PM EDT Office Visit [facility] [address] [place] [address] Dakota Benton MD Medicare annual wellness visit, subsequent (Primary Dx); Type 2 diabetes mellitus with hyperglycemia, without long-term current use of insulin (HCC); Essential hypertension, benign ; Chronic obstructive pulmonary disease, unspecified COPD type (HCC); Bipolar 1 disorder, depressed, moderate (HCC); Acquired hypothyroidism ; Dyslipidemia ; Encounter for long-term current use of medication; Type 2 diabetes mellitus with other specified complication (HCC) 01/03/2025 Bamboo flowsheet [facility] [address] [place] [phone] Dakota Benton MD from Last 3 Months Family History Medical History Relation Name Comments Lung cancer Father Colon cancer Mother Diabetes Mother Heart disease Mother Hypertension Mother Relation Name Status Comments Father Mother Social History Tobacco Use Types Packs/Day Years Used Date Smoking Tobacco: Every Day Cigarettes Smokeless Tobacco: Never Tobacco Cessation:Ready to Q uit: No; Counseling Given: No PHQ-2 Answer Date Recorded Patient Health Questionnaire-2 Score 6 01/03/2025 Comments Unknown Sex and Gender Information Value Date Recorded Sex Assigned at Not on file Legal Sex Female 7:01 PM EDT Gender Identity Not on file Sexual Orientation Not on file Last Filed Vital Signs Vital Sign Reading Time Taken Comments Blood Pressure 116/58 01/03/2025 2:04 PM EDT Pulse 71 01/03/2025 2:04 PM EDT Temperature 35.9 C (96.6 F) 01/03/2025 2:04 PM EDT Respiratory Rate 20 01/03/2025 2:04 PM EDT Oxygen Saturation 92% 01/03/2025 2:04 PM EDT Inhaled Oxygen Concentration - - Weight 87.1 kg (192 lb) 01/03/2025 2:04 PM EDT Height 170.2 cm (5' 7 ) 01/03/2025 2:04 PM EDT Body Mass Index 30.07 01/03/2025 2:04 PM EDT Plan of Treatment Upcoming Encounters Date Type Department Care Team (Late st Contact Info) Description 07/06/2025 1:30 PM EST Office Visit [facility] [address] [place] [address] Dakota Benton MD [address] [place] [address] Health Maintenance Due Date Last Done Comments CT Colonography 1958 Colonoscopy 1958 Colorectal Cancer Screening 1958 FIT-DNA 1958 FIT 1958 FOBT 1958 Sigmoidoscopy 1958 Pneumococcal Vaccine: 65+ Years (1 of 2 - PCV) 1977 Diabetes: Hemoglobin A1C 08/04/2024 02/02/2024 Diabetes: Urine Protein Screening 02/01/2025 02/02/2024, 08/14/2021, 08/14/2021 Influenza Vaccine (#1) 2025 Mammogram 01/03/2026 Postponed from 1998 (Patient Refused) Medicare Annual Wellness (AWV) 01/03/2026 01/03/2025 Diabetes: Retinopathy Screening 07/28/2026 07/28/2024 Insurance [facility] MEDICARE ADVANTAGE ANTHEM MEDICARE ADVANTAGE Care Teams Orthotics Technician Relationship Specialty Start Date End Date Dakota Benton MD [address] [place] [phone] PCP - General Family Medicine 07/07/23 Dakota Benton MD [address] [place] [phone] PCP - Elda ABERNATHY 07/20/24 Dakota Benton MD Referring Physician Family Medicine 07/07/23 Dakota Benton MD Referring Physician Family Medicine 07/07/23
--- OUTSIDE RECORDS SUMMARY | 2025-02-09 09:19 | XMS_ITS | Encounter Summary ---
Author Organization [facility] Address [address] [facility] [place] [address] Care Team Providers Care Washtub Worker Name Role Phone Dakota Benton MD Unavailable Dakota Benton MD Unavailable Dakota Benton MD Primary Care Provider [phone] Dakota Benton MD Unavailable Encounter Details Date Type Department Care Team (Late st Contact Info) Description 07/28/2024 Orders Only [facility] [address] [place] [phone] Dakota Benton MD [address] [place] [phone] Social History Tobacco Use Types Packs/Day Years Used Date Smoking Tobacco: Every Day Cigarettes Smokeless Tobacco: Never Comments Unknown Sex and Gender Information Value Date Recorded Sex Assigned at Not on file Legal Sex Female 7:01 PM EDT Gender Identity Not on file Sexual Orientation Not on file documented as of this encounter Plan of Treatment Upcoming Encounters Date Type Department Care Team (Late st Contact Info) Description 07/06/2025 1:30 PM EST Office Visit [facility] [address] [place] [phone] Dakota Benton MD [address] [place] [phone] documented as of this encounter Procedures Procedure Name Priority Date/Time Associated Diagnosis Comments DIABETES EYE EXAM Routine 07/28/2024 11:31 AM EST documented in this encounter Results * Hm Diabetes Eye Exam (07/28/2024 11:31 AM EST) Dakota Benton MD HEALTH MAINTENANCE Final Result documented in this encounter Visit Diagnoses Not on filedocumented in this encounter Care Teams Washtub Worker Relationship Specialty Start Date End Date Dakota Benton MD [address] [place] [phone] PCP - General Family Medicine 07/07/23 Dakota Benton MD [address] [place] [phone] PCP - Elda ABERNATHY 07/20/24 Dakota Benton MD Referring Physician Family Medicine 07/07/23 Dakota Benton MD Referring Physician Family Medicine 07/07/23 documented as of this encounter
--- OUTSIDE RECORDS SUMMARY | 2025-02-09 09:20 | XMS_ITS | Patient Health Record ---
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 Name Role Phone Jazmine New Primary Care Provider Michelle Lane Unavailable [phone] Allergies Allergen (clinical drug ingredient) Drug/Non Drug Allergy documented on EMR Reaction Allergy Type Onset Date Status Metals Metals (uncoded) Unknown Allergy Act gianna Penicillin hives Drug Allergy Active Substance with sulfonamide structure and antibacterial mechanism of action (substance) Sulfa Antibiotics Unknown Drug Allergy Active Reason For Referral No Information Medications Medication SIG (Take, Route, Frequency, Duration) [...] a day; Duration: 90 days 06/23/2024 Active Lisinopril 40 MG 1 tablet Orally Once a day Active Levothyroxine Sodium 150 MCG 1 tablet in the morning on an empty stomach Orally Once a day Active metFORMIN HCl [...] to kaitlyn t Section Notes: Smokes 3PPD Smokes 3PPD Smokes 3PPD Smokes 3PPD Smokes 3PPD Smokes 3PPD Smokes 3PPD Smokes 3PPD Problems Problem Type SNOMED Code ICD Code Onset Dates Problem Status W/U Status Risk Notes Problem Insomnia disorder related to another mental disorder (20164527) 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 Problem Episodic mood disorder ([id number] [id number]) Episodic mood disorder (F39) Active confirmed Problem NIDA (generalized anxiety disorder) (F41.1) Active confirmed Vital Signs Heart Rate 60 /min 02/06/2025 Temperature 97.5 degrees Fahrenheit 02/06/2025 Oximetry 94 % 02/06/2025 Blood pressure diastolic 72 mm Hg 02/06/2025 Height 67 in 02/06/2025 Blood pressure systolic 121 mm Hg 02/06/2025 Weight 191.6 lbs 02/06/2025 BMI 30.01 kg/m2 02/06/2025 Encounters Encounter Location Date Provider Diagnosis [address] [place] [address] 02/11/2024 Jazmine Slingwine [facility] [address] [place] [address] 03/18/2024 Jazmine Slingwine NIDA (generalized anxiety disorder) F41.1 [address] [place] [address] 05/26/2024 Jazmine Slingwine [address] [place] [address] 06/23/[address] [place] [address] 02/11/2024 Jazmine Slingwine NIDA (generalized anxiety disorder) F41.1 and Insomnia due to other mental disorder F51.[address] [place] [address] 06/23/2024 Jazmine Slingwine NIDA (generalized anxiety disorder) F41.1 ; Insomnia due to other mental disorder F51.05 and Episodic mood disorder F39 [address] [place] [address] 07/22/2024 Jazmine Slingwine Insomnia due to othe r mental disorder F51.05 ; NIDA (generalized anxiety disorder) F41.1 and Episodic mood disorder F39 [address] [place] [address] 10/14/2024 Jazmine Slingwine NIDA (generalized anxiety disorder) F41.1 ; Insomnia due to other mental disorder F51.05 and Episodic mood disorder F39 [address] [place] [address] 12/09/2024 Jazmine Slingwine Insomnia due to othe r mental disorder F51.05 ; Episodic mood disorder F39 ; NIDA (generalized anxiety disorder) F41.1 and Schizoaffective schizophrenia F25.9 [address] [place] [address] 02/06/2025 Jazmine Slingwine NIDA (generalized anxiety disorder) F41.1 ; Insomnia due to other mental disorder F51.05 and Episodic mood disorder F39 [address] [address] 09/09/2024 Jazmine Slingwine NIDA (generalized anxiety disorder) F41.1 ; Insomnia due to other mental disorder F51.05 and Episodic mood disorder F39 [address] [address] 03/18/2024 Jazmine Slingwine NIDA (generalized anxiety disorder) F41.1 and Insomnia due to other mental disorder F51.[address] [address] 04/15/2024 Jazmine Slingwine Episodic mood disord er F39 ; NIDA (generalized anxiety disorder) F41.1 and Insomnia due to other mental disorder F51.[address] [address] 05/05/2024 Jazmine Slingwine NIDA (generalized anxiety disorder) F41.[address] [address] 05/26/2024 Jazmine Slingwine NIDA (generalized anxiety disorder) F41.1 ; Insomnia due to other mental disorder F51.05 and Episodic mood disorder F39 Assessments Encounter Date Diagnosis (ICD Code) Assessment Notes Treatment Notes Treatment Clinical Notes Section Notes 02/11/2024 NIDA (generalized anxiety disorder) (ICD-10 - F41.1) 03/18/2024 NIDA (generalized anxiety disorder) (ICD-10 - F41.1) 03/18/2024 NIDA (generalized anxiety disorder) (ICD-10 - F41.1) 04/15/2024 Episodic mood disorder (ICD-10 - F39) 05/05/2024 NIDA (generalized anxiety disorder) (ICD-10 - F41.1) 05/26/2024 NIDA (generalized anxiety disorder) (ICD-10 - F41.1) 06/23/2024 NIDA (generalized anxiety disorder) (ICD-10 - F41.1) 07/22/2024 Insomnia due to other mental disorder (ICD-10 - F51.05) 10/14/2024 NIDA (generalized anxiety disorder) (ICD-10 - F41.1) [...] not endorse exhibiting symptoms aligning with janice. Buspar is a medication used for anxiety. The medication can cause dizziness, sedation, and restless. Please contact the office if you experience these symptoms. The medication typically takes 2-4 weeks to achieve efficacy. Made aware to contact office if symptoms worsen. Patient educated on antipsychotic dosing schedule and side effects. Made aware to not abruptly stop the medication. Made aware to notify the office or go to the ER if experience any abnormal repetitive movements. Also, made aware to notify office of any nausea, vomiting, or dizziness. Made aware to not stop medication abruptly. This is an FDA approved use for this medication. Discussed with patient crisis plan. Provided crisis hotline number. [facility] has good support system. Made aware to contact office if has an increase in suicidal thoughts. If outside of office hours, patient to go to the ER. Patient will call the office with any questions or concerns. . The patient verbalizes understanding with all [...] Informed consent obtained: YES, we discussed the diagnosis/diagnose s, the treatment options, treatment(s) recommended vs. no treatment. We discussed risks and benefits of treatment options, treatment recommendations vs. no treatment. . . Pt is to continue current treatment plan Has good tolerability and compliance with medication Call for problems All questions and concerns discussed . 12/09/2024 Insomnia due to other mental disorder (ICD-10 - F51.05) 09/09/2024 NIDA (generalized anxiety disorder) (ICD-10 - F41.1) [...] contact information was provided to the patient/guardian. Buspar is a medication used for anxiety. The medication can cause dizziness, sedation, and restless. Please contact the office if you experience these symptoms. The medication typically takes 2-4 weeks to achieve efficacy. Made aware to contact office if symptoms worsen. . Informed consent obtained: YES, we discussed the diagnosis/diagnose s, the treatment options, treatment(s) recommended vs. no treatment. We discussed risks and benefits of treatment options, treatment recommendations vs. no treatment. . 02/06/2025 NIDA (generalized anxiety disorder) (ICD-10 - [...] Informed consent obtained: YES, we discussed the diagnosis/diagnose s, the treatment options, treatment(s) recommended vs. no treatment. We discussed risks and benefits of treatment options, treatment recommendations vs. no treatment. . . Pt is to continue current treatment plan Has good tolerability and compliance with medication Call for problems All questions and concerns discussed . 10/14/2024 Insomnia due to other mental disorder (ICD-10 - F51.05) 02/06/2025 Insomnia due to other mental disorder (ICD-10 - F51.05) 12/09/2024 Episodic mood disorder (ICD-10 - F39) 07/22/2024 NIDA (generalized anxiety disorder) (ICD-10 - F41.1) Educated on new antidepressant. Made aware of Black Box Warning that it can increase suicidal thoughts, especially in minors. If this happens go to the ER. Make the office aware or go to the ER, if you experience seizures or an increase in activity and irritability. Made aware to not abruptly stop medication. Medication can cause headache and nausea. . Denies suicidal or homicidal ideation or plan. No morbid thoughts. Interpersonal issues discussed. Support provided Insight oriented/ Behavior modifying/ Supportive therapy . Buspar is a medication used for anxiety. The medication can cause dizziness, sedation, and restless. Please contact the office if you experience these symptoms. The medication typically takes 2-4 weeks to achieve efficacy. Made aware to contact office if symptoms worsen. Patient educated on new antipsychotic dosing schedule and side effects. Made aware to not abruptly stop the medication. Made aware to notify the office or go to the ER if experience any abnormal repetitive movements. Also, made aware to notify office of any nausea, vomiting, or dizziness. Made aware to not stop medication abruptly. This is an FDA approved use for this medication. Discussed with patient crisis plan. Provided crisis hotline number. [facility] has good support system. Made aware to contact office if has an increase in suicidal thoughts. If outside of office hours, patient to go to the ER. Patient will call the office with any questions or concerns. Patient educated about the importance of adequate sleep to your mental health. The bedroom should be kept dark to promote restful sleep. The patient should not use their phone or watch TV while in bed, these behaviors can be stimulating and keep the patient awake. . Informed consent obtained: YES, we discussed the diagnosis/diagnose s, the treatment options, treatment(s) recommended vs. no treatment. We discussed risks and benefits of treatment options, treatment recommendations vs. no treatment. . 09/09/2024 Insomnia due to other mental disorder (ICD-10 - F51.05) 06/23/2024 Insomnia due to other mental disorder (ICD-10 - F51.05) 05/26/2024 Insomnia due to other mental disorder (ICD-10 - F51.05) 04/15/2024 NIDA (generalized anxiety disorder) (ICD-10 - F41.1) 03/18/2024 Insomnia due to other mental disorder (ICD-10 - F51.05) 02/11/2024 Insomnia due to other mental disorder (ICD-10 - F51.05) 04/15/2024 Insomnia due to other mental disorder (ICD-10 - F51.05) 05/26/2024 Episodic mood disorder (ICD-10 - F39) 06/23/2024 Episodic mood disorder (ICD-10 - F39) 09/09/2024 Episodic mood disorder (ICD-10 - F39) 07/22/2024 Episodic mood disorder (ICD-10 - F39) 12/09/2024 NIDA (generalized anxiety disorder) (ICD-10 - F41.1) [...] contact information was provided to the patient/guardian. Buspar is a medication used for anxiety. The medication can cause dizziness, sedation, and restless. Please contact the office if you experience these symptoms. The medication typically takes 2-4 weeks to achieve efficacy. Made aware to contact office if symptoms worsen. Patient educated on antipsychotic dosing schedule and side effects. Made aware to not abruptly stop the medication. Made aware to notify the office or go to the ER if experience any abnormal repetitive movements. Also, made aware to notify office of any nausea, vomiting, or dizziness. Made aware to not stop medication abruptly. This is an FDA approved use for this medication. Discussed with patient crisis plan. Provided crisis hotline number. [facility] has good support system. Made aware to contact office if has an increase in suicidal thoughts. If outside of office hours, patient to go to the ER. Patient will call the office with any questions or concerns. . Informed consent obtained: YES, we discussed the diagnosis/diagnose s, the treatment options, treatment(s) recommended vs. no treatment. We discussed risks and benefits of treatment options, treatment recommendations vs. no treatment. . . Pt is to continue current treatment plan Has good tolerability and compliance with medication Call for problems All questions and concerns discussed . 02/06/2025 Episodic mood disorder (ICD-10 - F39) 10/14/2024 Episodic mood disorder (ICD-10 - F39) 12/09/2024 Schizoaffective schizophrenia (ICD-10 - F25.9) 02/11/2024 Other follow up in 1 month Patient educated on new antipsychotic dosing schedule and side effects. Made aware to not abruptly stop the medication. Made aware to notify the office or go to the ER if experience any abnormal repetitive movements. Also, made aware to notify office of any nausea, vomiting, or dizziness. Made aware to not stop medication abruptly. This is an FDA approved use for this medication. Discussed with patient crisis plan. Provided crisis hotline number. [facility] has good support system. Made aware to contact office if has an increase in suicidal thoughts. If outside of office hours, patient to go to the ER. Patient will call the office with any questions or concerns. Educated on new antidepressant. Made aware of Black Box Warning that it can increase suicidal thoughts, especially in minors. If this happens go to the ER. Make the office aware or go to the ER, if you experience seizures or an increase in activity and irritability. Made aware to not abruptly stop medication. Medication can cause headache and nausea. . Denies suicidal or homicidal ideation or plan. No morbid thoughts. Interpersonal issues discussed. Support provided Insight oriented/ Behavior modifying/ Supportive therapy . Patient educated about the importance of adequate sleep to your mental health. The bedroom should be kept dark to promote restful sleep. The patient should not use their phone or watch TV while in bed, these behaviors can be stimulating and keep the patient awake. . Informed consent obtained: YES, we discussed the diagnosis/diagnose s, the treatment options, treatment(s) recommended vs. no treatment. We discussed risks and benefits of treatment options, treatment recommendations vs. no treatment. . 03/18/2024 Other follow up in 1 month Educated on new antidepressant. Made aware of Black Box Warning that it can increase suicidal thoughts, especially in minors. If this happens go to the ER. Make the office aware or go to the ER, if you experience seizures or an increase in activity and irritability. Made aware to not abruptly stop medication. Medication can cause headache and nausea. . Denies suicidal or homicidal ideation or plan. No morbid thoughts. Interpersonal issues discussed. Support provided Insight oriented/ Behavior modifying/ Supportive therapy . Patient educated on new antipsychotic dosing schedule and side effects. Made aware to not abruptly stop the medication. Made aware to notify the office or go to the ER if experience any abnormal repetitive movements. Also, made aware to notify office of any nausea, vomiting, or dizziness. Made aware to not stop medication abruptly. This is an FDA approved use for this medication. Discussed with patient crisis plan. Provided crisis hotline number. [facility] has good [facility]. Made aware to contact office if has an increase in suicidal thoughts. If outside of office hours, patient to go to the ER. Patient will call the office with any questions or concerns. Buspar is a medication used for anxiety. The medication can cause dizziness, sedation, and restless. Please contact the office if you experience these symptoms. The medication typically takes 2-4 weeks to achieve efficacy. Made aware to contact office if symptoms worsen. Patient educated about the importance of adequate sleep to your mental health. The bedroom should be kept dark to promote restful sleep. The patient should not use their phone or watch TV while in bed, these behaviors can be stimulating and keep the patient awake. . Informed consent obtained: YES, we discussed the diagnosis/diagnose s, the treatment options, treatment(s) recommended vs. no treatment. We discussed risks and benefits of treatment options, treatment recommendations vs. no treatment. . 04/15/2024 Other follow up in 3 weeks Educated on new antidepressant. Made aware of Black Box Warning that it can increase suicidal thoughts, especially in minors. If this happens go to the ER. Make the office aware or go to the ER, if you experience seizures or an increase in activity and irritability. Made aware to not abruptly stop medication. Medication can cause headache and nausea. . Denies suicidal or homicidal ideation or plan. No morbid thoughts. Interpersonal issues discussed. Support provided Insight oriented/ Behavior modifying/ Supportive therapy . Patient educated on new antipsychotic dosing schedule and side effects. Made aware to not abruptly stop the medication. Made aware to notify the office or go to the ER if experience any abnormal repetitive movements. Also, made aware to notify office of any nausea, vomiting, or dizziness. Made aware to not stop medication abruptly. This is an FDA approved use for this medication. Discussed with patient crisis plan. Provided crisis hotline number. [facility] has good support [facility]. Made aware to contact office if has an increase in suicidal thoughts. If outside of office hours, patient to go to the ER. Patient will call the office with any questions or concerns. Buspar is a medication used for anxiety. The medication can cause dizziness, sedation, and restless. Please contact the office if you experience these symptoms. The medication typically takes 2-4 weeks to achieve efficacy. Made aware to contact office if symptoms worsen. Patient educated about the importance of adequate sleep to your mental health. The bedroom should be kept dark to promote restful sleep. The patient should not use their phone or watch TV while in bed, these behaviors can be stimulating and keep the patient awake. . Informed consent obtained: YES, we discussed the diagnosis/diagnose s, the treatment options, treatment(s) recommended vs. no treatment. We discussed risks and benefits of treatment options, treatment recommendations vs. no treatment. . 05/05/2024 Other folloow up in 6 weeks Educated on new antidepressant. Made aware of Black Box Warning that it can increase suicidal thoughts, especially in minors. If this happens go to the ER. Make the office aware or go to the ER, if you experience seizures or an increase in activity and irritability. Made aware to not abruptly stop medication. Medication can cause headache and nausea. . Denies suicidal or homicidal ideation or plan. No morbid thoughts. Interpersonal issues discussed. Support provided Insight oriented/ Behavior modifying/ Supportive therapy . Patient educated on new antipsychotic dosing schedule and side effects. Made aware to not abruptly stop the medication. Made aware to notify the office or go to the ER if experience any abnormal repetitive movements. Also, made aware to notify office of any nausea, vomiting, or dizziness. Made aware to not stop medication abruptly. This is an FDA approved use for this medication. Discussed with patient crisis plan. Provided crisis hotline number. [facility] has good support system. Made aware to contact office if has an increase in suicidal thoughts. If outside of office hours, patient to go to the ER. Patient will call the office with any questions or concerns. Buspar is a medication used for anxiety. The medication can cause dizziness, sedation, and restless. Please contact the office if you experience these symptoms. The medication typically takes 2-4 weeks to achieve efficacy. Made aware to contact office if symptoms worsen. . Informed consent obtained: YES, we discussed the diagnosis/diagnose s, the treatment options, treatment(s) recommended vs. no treatment. We discussed risks and benefits of treatment options, treatment recommendations vs. no treatment. . Patient educated about the importance of adequate sleep to your mental health. The bedroom should be kept dark to promote restful sleep. The patient should not use their phone or watch TV while in bed, these behaviors can be stimulating and keep the patient awake. 05/26/2024 Other vicente wuarline in 2 weeks . Discussed seriousness of taking benzodiazepine medication daily and as needed, risks and benefits discussed including risk of addiction and accidental . Pt verbalized understanding. . High risk medications are drugs that have a heightened risk of causing significant patient harm when they are used in error. High risk medicines include medicines: with a low therapeutic index. that present a high risk when administered by the wrong route or when other system errors occur. Please notify provider for any concerns about your medications. . Educated on new antidepressant. Made aware of Black Box Warning that it can increase suicidal thoughts, especially in minors. If this happens go to the ER. Make the office aware or go to the ER, if you experience seizures or an increase in activity and irritability. Made aware to not abruptly stop medication. Medication can cause headache and nausea. . Denies suicidal or homicidal ideation or plan. No morbid thoughts. Interpersonal issues discussed. Support provided Insight oriented/ Behavior modifying/ Supportive therapy . Buspar is a medication used for anxiety. The medication can cause dizziness, sedation, and restless. Please contact the office if you experience these symptoms. The medication typically takes 2-4 weeks to achieve efficacy. Made aware to contact office if symptoms worsen. Patient educated about the importance of adequate sleep to your mental health. The bedroom should be kept dark to promote restful sleep. The patient should not use their phone or watch TV while in bed, these behaviors can be stimulating and keep the patient awake. . Informed consent obtained: YES, we discussed the diagnosis/diagnose s, the treatment options, treatment(s) recommended vs. no treatment. We discussed risks and benefits of treatment options, treatment recommendations vs. no treatment. . 06/23/2024 Other follow up in 1 month Buspar is a medication used for anxiety. The medication can cause dizziness, sedation, and restless. Please contact the office if you experience these symptoms. The medication typically takes 2-4 weeks to achieve efficacy. Made aware to contact office if symptoms worsen. Patient educated on new antipsychotic dosing schedule and side effects. Made aware to not abruptly stop the medication. Made aware to notify the office or go to the ER if experience any abnormal repetitive movements. Also, made aware to notify office of any nausea, vomiting, or dizziness. Made aware to not stop medication abruptly. This is an FDA approved use for this medication. Discussed with patient crisis plan. Provided crisis hotline number. [facility] has good support system. Made aware to contact office if has an increase in suicidal thoughts. If outside of office hours, patient to go to the ER. Patient will call the office with any questions or concerns. Educated on new antidepressant. Made aware of Black Box Warning that it can increase suicidal thoughts, especially in minors. If this happens go to the ER. Make the office aware or go to the ER, if you experience seizures or an increase in activity and irritability. Made aware to not abruptly stop medication. Medication can cause headache and nausea. . Denies suicidal or homicidal ideation or plan. No morbid thoughts. Interpersonal issues discussed. Support provided Insight oriented/ Behavior modifying/ Supportive therapy . Patient educated about the importance of adequate sleep to your mental health. The bedroom should be kept dark to promote restful sleep. The patient should not use their phone or watch TV while in bed, these behaviors can be stimulating and keep the patient awake. . Informed consent obtained: YES, we discussed the diagnosis/diagnose s, the treatment options, treatment(s) recommended vs. no treatment. We discussed risks and benefits of treatment options, treatment recommendations vs. no treatment. . Plan Of Treatment Next Appt Details Provider Name:Jazmine bustillos, 03/09/2025 12:30:00 PM, [address] [place], [address], Provider Name:Jazmine bustillos, 04/03/2025 01:15:00 PM, [address], [place], [address], Insurance Providers Payer Name Payer Address Payer Phone Subscriber Number Group Number Insured Name Patient Relationship to Insured Coverage Start Date Coverage End Date [employer] [address] [place] [address] [id number] [facility] MAURILIO CARTER Self - patient is the insured 4 [facility] MED[facility] SEC TO [employer] ADV [address] [place] [address] [id number] MAURILIO CARTER Self - patient is the insured 4 [employer] [address] [place] [address] [id number] [facility] MAURILIO CARTER Self - patient is the insured 4 [facility] MEDICAID SECONDARY [address] [place] [address] [id number] MAURILIO CARTER Self - patient is the insured 4 Medical (General) History Medical History History ICD Code HYPOTHYROIDISM DIABETES HTN COPD LUNG NODULES ASTHMA MANIC DEPRESSIVE Surgical History Surgery Date(Month/Year) HYSTERECTOMY ANKLE REPAIR Cholecystectomy Tooth Extraction Hospitalization History Reason Date(Month/Year) [address] - Mental Health 1998 [facility] - Mental Health (x2) 19 96 See surgical hx.
[2025-02-09 10:13] LABS: Hematocrit 40.4 % (36.0-48.0); Hemoglobin 13.6 g/dL (12.0-16.0); Immature Granulocytes Abs Auto 0.02 10^3/uL (0.00-0.03); Immature Granulocytes Pct Auto 0.3 % (0.0-0.5); Lymphocytes Absolute Auto 2.8 10^3/uL (1.2-3.8); Mean Corpuscular HGB Conc 33.7 g/dL (29.9-35.2); Mean Corpuscular Hemoglobin 31.8 pg (26.7-34.0); Mean Corpuscular Volume 94.4 fL (81.0-99.0); Platelet Count 372 10^3/uL (150-450); Red Blood Count 4.28 10^6/uL (4.20-5.40); White Blood Count 7.7 10^3/uL (4.0-11.0)
[2025-02-09 10:22] LABS: Microalbum Creatinine Ratio Ur 13.7 mg/g (0.0-29.9)
[2025-02-09 10:36] LABS: Alanine Aminotransferase 33 U/L (14-59); Albumin Globulin Ratio 0.8; Albumin Level 3.4 g/dL (3.4-5.0); Alkaline Phosphatase 112 U/L (46-116); Anion Gap 13.9; Aspartate Amino Transferase 19 U/L (15-37); Blood Urea Nitrogen 24.0 mg/dL (7.0-18.0); Calcium 9.5 mg/dL (8.5-10.1); Carbon Dioxide 25.6 mmol/L (21.0-32.0); Chloride 104 mmol/L (98-107); Cholesterol 150 mg/dL (<=200); Estimated GFR (African America 51 (>=60 mL/min/1.73m^2); Estimated GFR (Non-African Ame 42 (>=60 mL/min/1.73m^2); Globulin 4.3 g/dL; Glucose 185 mg/dL (74-106); HDL Cholesterol 66 mg/dL (40-60); Potassium 4.5 mmol/L (3.5-5.1); Sodium 139 mmol/L (136-145); Thyroid Stimulating Hormone 0.026 uIU/mL (0.358-3.740); Total Protein 7.7 g/dL (6.4-8.2); Triglycerides 84 mg/dL (<=150); VLDL CHOLESTEROL 16.8 mg/dL
== END 2025-02-09 09:13 | disposition home or self-care (01) ==
PROVIDERS: PCP Family Medicine; Visit Provider Family Medicine
DX: E11.65 Type 2 diabetes mellitus with hyperglycemia (principal); I10 Essential (primary) hypertension; Z79.899 Other long term (current) drug therapy; E78.5 Hyperlipidemia, unspecified; E03.9 Hypothyroidism, unspecified
CPT/HCPCS: 36415; 80048; 80061; 80076; 82043; 82570; 83036; 84439; 84443; 85025